=== PATIENT | female | born 1980 | race Caucasian/White ===

== ENCOUNTER → 2020-01-13 15:22 | Outpatient (CLI) | payer OTHER, SELFPAY ==
[2020-01-13 15:45] LABS: Bacteria 0 SEEN /hpf (None Seen); Mucous, Urine 0 SEEN /hpf (<or=2+); Red Blood Cells-Urine 0 SEEN /hpf (0-5); Squamous Epithelial Cells - UA 0 SEEN /hpf (5-10); White Blood Cells 0 SEEN /hpf (0-5)
--- NOTE | 2020-01-13 15:50 | RAD_ITS ---
STUDY: X-RAY CHEST REASON FOR EXAM: Female, 39 years old. COUGH, WHOLE BODY ITCHES PER PT TECHNIQUE: Frontal and lateral views of the chest. COMPARISON: None. FINDINGS: Normal lung volumes. No infiltrates. Question of a 5 mm nodule in the mid right lung. CT scan recommended. No effusions. There is no demonstrated pleural abnormality. Normal size heart. Normal mediastinum and marcel. Normal visualized pulmonary arteries. Normal visualized aortic arch and descending thoracic aorta. Normal visualized thoracic spine. Normal visualized ribs, clavicles, and shoulders. There is no demonstrated abnormality of the visualized soft tissue structures of the upper abdomen. RAD/Chest PA and Lateral IMPRESSION: No acute chest disease but cannot exclude a small nodule in the mid right lung. CT scan is recommended. Electronically Signed: Eb Iyer MD at 16:03 EDT , Service support ,
[2020-01-13 17:58] LABS: Color, Urine Yellow (Yellow); Glucose, Dipstick 1000 mg/dl (Normal); Ketone-Dipstick Negative (Negative); Leukocyte Esterase-Dipstick Negative /ul (Negative); Nitrite-Dipstick Negative (Negative); Occult Blood-Urine Negative /ul (Negative); Protein-Dipstick 30 mg/dl (Negative); Specific Gravity, Urine 1.015 (1.002-1.030); Urine Bilirubin Dipstick Negative (Negative); Urine Clarity Clear (Clear); Urine Urobilinogen Normal (Normal)
[2020-01-13 17:59] LABS: Absolute Lymphocyte Count 1.45 X10^3/uL (0.83-4.51); Absolute Neutrophil Count 4.8 X10^3/uL (2.0-7.7); Basophil# 0.05 X10^3/uL; Basophil% 0.7 % (0-1); Eosinophil# 0.13 X10^3/uL; Eosinophils% 1.9 % (0-5); Hematocrit 38.5 % (37-47); Hemoglobin 12.2 g/dL (12.0-15.0); Lymphocyte # 1.45 X10^3/ul (4.0); Mean Corp Hgb Conc 31.7 g/dL (32-36); Mean Corpuscular Hgb 29.3 pg (27.0-32.0); Mean Corpuscular Volume 92.5 fL (81-99); Monocyte# 0.45 X10^3/uL; Monocyte% 6.5 % (0-10); NRBC Flagged by Analyzer 0 % (0-5); Neutrophil # 4.81 X10^3/uL (2.7-7.7); Neutrophil % 69.8 % (47-70); Platelet Count 281 K/mm3 (150-450); RBC Distribution Width CV 13.1 % (11.6-14.6); RBC Distribution Width SD 44.6 fl (35.1-43.9); Red Blood Count 4.16 M/mm3 (4.2-5.4); White Blood Count 6.9 K/mm3 (4.4-11.0)
[2020-01-13 18:06] LABS: Erythrocyte Sedimentation Rate 9 mm/hr (0-20)
[2020-01-13 18:17] LABS: T3 Total - Triiodothyronine 1.16 ng/mL (0.6-1.81)
[2020-01-13 18:22] LABS: ALB/GLOB Ratio 1.1 RATIO (0.9-2.4); AST(SGOT) 13 U/L (15-37); Alanine Aminotransfer ALT/SGPT 21 U/L (13-56); Albumin, Serum 3.9 g/dL (3.2-5.0); Alkaline Phosphatase 69 U/L (45-117); Anion Gap 6 (5-15); BUN 8 mg/dL (7-18); BUN/Creat Ratio 10.2 RATIO (10-20); Calcium,Total 8.9 mg/dL (8.5-10.1); Chloride 105 mmol/L (98-107); Creatinine, Serum 0.78 mg/dL (0.55-1.02); EST Glomerular Filtration Rate 86 mL/min (>60); Est Glom Filt Rate - Afr Amer 104 mL/min (>60); Globulin 3.5 g/dL (2.2-4.2); Glucose 96 mg/dL (74-106); Protein, Total 7.4 g/dL (6.4-8.2); Sodium Level 140 mmol/L (136-145)
[2020-01-17 14:07] LABS: Immunoglobulin A 208 mg/dL (87-352); Immunoglobulin E 35 IU/mL (6-495); Immunoglobulin G 929 mg/dL (586-1602); Immunoglobulin M 85 mg/dL (26-217); PROEL- A/G Ratio 1.4 (0.7-1.7); PROEL- Albumin 3.9 g/dL (2.9-4.4); PROEL- Alpha-1 Globulin 0.2 g/dL (0.0-0.4); PROEL- Alpha-2 Globulin 0.6 g/dL (0.4-1.0); PROEL- Globulin, Total 2.8 g/dL (2.2-3.9); PROEL- TOTAL PROTEIN 6.7 g/dL (6.0-8.5)
[2020-01-17 15:25] LABS: Thyroid Peroxidase AB < 9 IU/mL (0-34)
[2020-01-19 13:11] LABS: Anti-Nuclear Antibody Test Negative (.)
== END ==
PROVIDERS: Referring Provider Dermatology Pediatric Dermatology; Visit Provider Dermatology Pediatric Dermatology
DX: L29.8 Other pruritus (principal); L85.8 Other specified epidermal thickening
CPT/HCPCS: 36415; 71046; 80053; 81001; 82784; 82785; 84165; 84480; 85025; 85652; 86038; 86376; 87086; 87088